=== PATIENT | female | born 1960 | race Asian ===

== ENCOUNTER 2022-10-14 05:31 | Emergency (ER) | payer MEDICAID, OTHER ==
[~2022-10-14] VITALS: Ht 162.6 cm; Wt 64.9 kg
--- NOTE | 2022-10-14 05:40 | NUR ---
[id number] FROM [employer] FOR R SIDED NUMBNESS SHE NOTICED AT 0300. MLAPPS NEGATIVE LAMS 0. EQUAL SURGERY AIDE NO FACIAL ASSYMETRY OR DYSPHASIA. PT AWAKE AND ALERT X4. LKW 00:00. V/S ASSESSED AND HYPERTENSIVE 178/113.
--- NOTE | 2022-10-14 05:43 | NUR ---
CODE STROKE ACIVATED
--- NOTE | 2022-10-14 05:45 | NUR ---
18GA TO LEFT AC ESTABLISHED
--- NOTE | 2022-10-14 05:45 | NUR ---
BS=95
[2022-10-14] MEDS ORDERED: CT SWABBABLE VALVE TRANS SET 1 EA INFUS.SET MC ONE (05:46)
[2022-10-14] MEDS ORDERED: IOHEXOL-350 100 ML VIAL IV ONE (05:46)
[2022-10-14] MEDS ORDERED: IV NS 0.9% 250 ML IV ONE (05:46)
--- NOTE | 2022-10-14 05:47 | NUR ---
TELE - NEUROLOGY ACTIVATED
--- NOTE | 2022-10-14 05:48 | NUR ---
TAKE TO CT UNDER ACLS, ACCOMPANIED BY RN
[2022-10-14 05:54] LABS: BASOPHILS % (AUTO) 0.5 % (0.0-2.0); EOSINOPHILS % (AUTO) 1.2 % (0.0-6.0); HEMATOCRIT 46 % (33-45); LYMPHOCYTES # (AUTO) 1.6 K/uL (0.8-4.8); LYMPHOCYTES % (AUTO) 20.3 % (20.0-44.0); MEAN CORPUSCULAR HGB CONC 33 g/dl (31.0-36.0); MEAN CORPUSCULAR VOLUME 89 fL (82-100); MONOCYTES # (AUTO) 0.4 K/uL (0.1-1.30); MONOCYTES % (AUTO) 5.5 % (2.0-12.0); NEUTROPHILS # (AUTO) 5.8 K/uL (1.8-8.9); NEUTROPHILS % (AUTO) 72.5 % (43.0-81.0); PLATELET COUNT (AUTO) 252 K/uL (150-450); RED BLOOD CELL COUNT(AUTO) 5.11 MIL/uL (4.0-5.2)
--- NOTE | 2022-10-14 05:57 | NUR ---
Note undone in EDM - 10/14/22 at 0602 by ANIBAL [id number] FROM [employer] FOR R SIDED NUMBNESS SHE NOTICED AT 0300. MLAPPS NEGATIVE LAMS 0. EQUAL GASTROENTEROLOGY NURSE PRACTITIONER NO FACIAL ASSYMETRY OR DYSPHASIA. PT AWAKE AND ALERT X4. LKW 00:00. V/S ASSESSED AND HYPERTENSIVE 178/113.
--- NOTE | 2022-10-14 06:03 | NUR ---
BACK FROM CT
--- NOTE | 2022-10-14 06:04 | NUR ---
EMT AT BED SIDE FOR EKG
[2022-10-14 06:05] LABS: CALCIUM, SERUM 9.3 mg/dL (8.5-10.1); CARBON DIOXIDE 28 mmol/L (21-32); CHLORIDE 106 mmol/L (98-107); CREATININE 0.8 mg/dL (0.6-1.3); GLUCOSE 105 mg/dL (74-106); POTASSIUM 3.5 mmol/L (3.5-5.1); SODIUM SERUM 142 mmol/L (136-145); UREA NITROGEN, BLOOD 10 mg/dL (7-18)
--- NOTE | 2022-10-14 06:05 | NUR ---
COVID SWAB DONE
--- NOTE | 2022-10-14 06:10 | NUR ---
DR ASA VELEZ, NEUROLOGIST DOING TELE ASSESSMENT
--- NOTE | 2022-10-14 06:15 | NUR ---
DR GAXIOLA ON THE PHONE WITH [facility]
--- NOTE | 2022-10-14 06:18 | NUR ---
2ND PERIPHERAL IV, 20GA TO RIGHT AC ESTABLISHED
--- NOTE | 2022-10-14 06:21 | NUR ---
DR GAXIOLA ON THE PHONE WITH DR ASA VELEZ, NEUROLOGIST
[2022-10-14] MEDS ORDERED: ASPIRIN 81 MG TAB.CHEW PO ONE (06:30)
[2022-10-14] MEDS ORDERED: ASPIRIN 81 MG TAB.CHEW ONE (06:32)
--- NOTE | 2022-10-14 06:34 | NUR ---
FAXED CLINICALS TO [facility]
--- NOTE | 2022-10-14 06:41 | NUR ---
SPOKE TO [facility] AT [facility] AND INITIATED TRANSFER
[2022-10-14 06:45] VITALS: BP 204/105
--- NOTE | 2022-10-14 07:00 | NUR ---
PT REFUSED TO HAVE BP TAKEN
--- NOTE | 2022-10-14 07:02 | NUR ---
GOT A CALL FROM [facility] AT [facility]; PT GOT ACCEPTED AT [facility] UNDER CARE OF DR MCCURDY, INTERVANTION RADIOLOGIST: DR DOW.
--- NOTE | 2022-10-14 07:04 | NUR ---
PT IS UNDRESSED, GOWNED UP, AND BOTH GROINS ARE SHAVED.
--- NOTE | 2022-10-14 07:23 | NUR ---
URINE COLLECTED, SENT TO LAB
--- NOTE | 2022-10-14 07:33 | NUR ---
REPORT GIVEN TO [facility] AT BEDSIDE FOR TRANSPORT TO [facility]
--- NOTE | 2022-10-14 07:40 | NUR ---
TRANSFERRED TO [facility] WITH [facility]
== END 2022-10-14 07:43 | disposition short-term general hospital (02) ==
LOC: ER 05:32
DX: I63.532 Cerebral infarction due to unspecified occlusion or stenosis of left posterior cerebral artery (principal); R20.2 Paresthesia of skin; R53.1 Weakness; Z20.822 Contact with and (suspected) exposure to COVID-19
CPT/HCPCS: 99285; 70450; 71045; 87426; 93005; 70498; 70496; 85025; 80048; 36415; 84484; 85730; 82962; J7050; Q9967; C9803